=== PATIENT | male | born 1950 | race Caucasian/White ===

== ENCOUNTER 2024-12-10 21:28 | Emergency (ER) | payer OTHER, MEDICARE ==
[~2024-12-10] VITALS: Ht 182.9 cm; Wt 119.7 kg
[2024-12-10] MEDS ORDERED: DIPHTH,PERTUSS(ACELL),TET VAC 0.5 ML SYRINGE IM ONE (21:45)
[2024-12-10] MEDS ORDERED: LIDOCAINE/RACEPINEP/TETRACAINE 3 ML SYR TOP ONE (21:45)
[2024-12-10 21:51] LABS: BASOPHILS 0.3 % (0.2-1.2); EOSINOPHILS 1.5 % (0.8-7.0); LYMPHOCYTES 11.8 % (21.8-53.1); MCH 30.3 PG (25.7-32.2); MCHC 32.8 g/dL (32.3-36.5); MCV 92.4 fL (79.0-92.2); MONOCYTES 5.4 % (5.3-12.2); NEUTROPHILS 80.4 % (34.0-67.9); RBC 4.36 M/uL (4.63-6.08)
[2024-12-10 22:14] LABS: ALT (SGPT) 26.0 U/L (14-59); AST (SGOT) 26.0 U/L (15-37); GLOMERULAR FILTRATION RATE,EST 62.0 mL/min (>60); PROTEIN, TOTAL 7.1 g/dL (6.4-8.2); UREA NITROGEN 29.0 mg/dL (7-18)
[2024-12-10 22:28] LABS: ABO B; ANTIBODY SCREEN NEGATIVE; RH NEGATIVE
[2024-12-11] MEDS ORDERED: HYDROCODONE BIT/ACETAMINOPHEN 5/325 MG 1 TAB HOME.PACK PO ONE (00:15)
[2024-12-11 00:27] VITALS: BP 139/59
--- NOTE | 2024-12-11 22:26 | EKG ---
[facility] [address] [facility] [place] [address] Signed Wide QRS rhythm Left bundle branch block Abnormal ECG No previous ECGs available Confirmed by Que Benoit MD () on 12/11/2024 10:25:49 PM Electronically Signed By: QUE BENOIT MD 12/11/242225 PATIENT NAME: BRETT MCLEOD Electrocardiogram DATE OF : 54 PHYSICIAN: QUE BENOIT MD REPORT #: [id number] REPORT IS CONFIDENTIAL AND NOT TO BE RELEASED WITHOUT AUTHORIZATION
== END 2024-12-11 00:20 | disposition home or self-care (01) ==
LOC: ED 21:28
PROVIDERS: Internal Medicine
DX: S01.01XA Laceration without foreign body of scalp, initial encounter (principal); W01.0XXA Fall on same level from slipping, tripping and stumbling without subsequent striking against object, initial encounter
CPT/HCPCS: 36415; 70450; 71045; 73030; 73502; 80053; 80307; 85025; 86850; 86900; 86901; 90471; 90715; 93005; 93010; 99284-25; A9270